=== PATIENT | female | born 1970 | race Caucasian/White ===

== ENCOUNTER 2021-07-06 10:41 | Outpatient (CLI) | payer OTHER | END 2021-07-06 10:42 | disposition home or self-care (01) | LOC: BURRAD 10:41 | PROVIDERS: ATTEND Family Medicine | DX: Z00.00 Encounter for general adult medical examination without abnormal findings (principal); E03.9 Hypothyroidism, unspecified; N94.3 Premenstrual tension syndrome; R53.83 Other fatigue | CPT/HCPCS: 71046 ==